=== PATIENT | male | born 1945 | race Two or more races ===

== ENCOUNTER 2020-04-20 19:27 | Inpatient (IN) | payer MEDICARE, SELFPAY ==
[2020-04-20 19:28] VITALS: BP 119/61; PULSE 63; RESP 18; TEMP 36.6; O2SAT 98; BMI 32.3
--- NOTE | 2020-04-20 20:23 | EKG12_ITS ---
Test Reason : CONFUSION Blood Pressure : / mmHG Vent. Rate : 065 BPM Atrial Rate : 065 BPM P-R Int : 212 ms QRS Dur : 092 ms QT Int : 416 ms P-R-T Axes : 036 029 046 degrees QTc Int : 432 ms Sinus rhythm with 1st degree A-V block Otherwise normal ECG Confirmed by NICKIE ZHANG, ERIKA ([id number]), production editor MERI CAMPOS ([id number]) on 04/24/2020 10:54:46 AM Referred By: HAYDER Confirmed By:ERIKA FU MD
--- NOTE | 2020-04-20 20:27 | ED.RN ---
NO OLD EKG FOUND.
--- NOTE | 2020-04-20 20:31 | ED.DCSUM_ITS ---
History of Present Illness Chief Complaint: Alt LOC Informant: Patient, Significant Other Limited by: - - Patient is a poor informant. is a poor informant. Onset: Days Context: Sudden Onset Timing: Continuous, Waxes and wanes Quality: Altered level of consciousness and orientation Location: Not applicable Current Severity: Mild Maximum Severity: Moderate Worsened by: Per patient and unknown Relieved by: Nothing Associated Symptoms: Unable to determine Narrative: Patient is a poor informant. Review of old records indicates that patient has history of alcoholic cirrhosis and hepatic encephalitis. Patient not had a drink in some time according the . He is disoriented to time. He has no complaints. states his urine has been dark. There is no history of him bruising easily. History is limited because he has altered mental status and is not able to supplement. Prior similar symptoms: Yes - Possibly Recent Illness/Hospitalization: No - Past Medical History (1) Cirrhosis of liver Status: Acute (2) History of hepatic encephalopathy Status: Acute Past Medical History - Allergies and Home Meds Allergies/Adverse Reactions: Allergies Penicillins [PCN] Allergy (Verified 04/20/20 19:31) PT UNSURE OF REACTION Primary Care Physician: Kellie Benson MD [Primary Care Provider] - Prior records reviewed: Yes Lives: Spouse/ Significant Other Smoking Status: Former smoker Alcohol: Sober Drugs: None Review of Systems ROS: Unable to Obtain Neurological: Reports: - - Fusion per Physical Exam Vital Signs/Narrative: Vital Signs Temp Pulse Resp BP Pulse Ox 04/20/20 19:28 97.9 F 63 18 119/61 98 Inital Vital Signs reviewed: Yes General: Well nourished, Well developed, Obese Head: Normocephalic, Atraumatic Eyes: Perrl, EOMI. Negative for: Pale conjunctiva ENT: Moist mucous membranes, No rhinorrhea Neck: Supple, Nontender, No lymphadenopathy, No JVD Cardiovascular: Regular rate, Regular rhythm, No murmurs, Normal S1, Normal S2 Respiratory: No distress, CTA bilaterally Abdomen: Soft, Nontender, Nondistended, Normal bowel sounds, No masses Rectal: Deferred Back: Nontender, Normal Inspection Extremities: Nontender, Edema Skin: Normal color, No rash Neurological: Cranial nerves II-XII grossly intact, Normal Strength, Normal Sensation. Negative for: Alert, Oriented x3 Psychological: Normal affect Diagnostic/Tx/Re-eval Chest X-Ray - ED: 1 View, Read by ED Physician, Normal, Heart, Lungs, Mediastinum, Bony Structures, No Acute Disease, Chronic Changes 04/20/20 21:05 Chest 1 View (Portable) [RAD] Stat Laboratory Results 04/20/20 04/20/20 04/20/20 20:21 20:21 20:21 WBC 3.2 L RBC 3.79 L Hgb 12.0 L Hct 36.8 L MCV 97.1 H MCH 31.7 MCHC 32.6 RDW Std Deviation 63.4 H RDW Coeff of Ana Cristina 17.9 H Plt Count 178 MPV 10.6 Immature Gran % (Auto) 0.300 Neut % (Auto) 46.2 L Lymph % (Auto) 29.6 [place] % (Auto) 16.2 H Eos % (Auto) 6.5 H Baso % (Auto) 1.2 H Absolute Neuts (auto) 1.5 L Absolute Lymphs (auto) 0.95 Nucleated RBC % 0 PT 15.8 H INR 1.3 APTT 32.8 Sodium 139 Potassium 4.4 Chloride 110 H Carbon Dioxide 26.0 Anion Gap 3 L BUN 12 Creatinine 0.90 Estim Creat Clear Calc 65.97 Est GFR (MDRD) Af Amer 107 Est GFR (MDRD) Non-Af 88 BUN/Creatinine Ratio 13.4 Glucose 95 Lactic Acid Calcium 8.7 Total Bilirubin 2.10 H AST 37 ALT 20 Alkaline Phosphatase 261 H Ammonia Total Protein 7.4 Albumin 2.8 L Globulin 4.6 H Albumin/Globulin Ratio 0.6 L 04/20/20 04/20/20 20:33 20:33 WBC RBC Hgb Hct MCV MCH MCHC RDW Std Deviation RDW Coeff of Ana Cristina Plt Count MPV Immature Gran % (Auto) Neut % (Auto) Lymph % (Auto) [place] % (Auto) Eos % (Auto) Baso % (Auto) Absolute Neuts (auto) Absolute Lymphs (auto) Nucleated RBC % PT INR APTT Sodium Potassium Chloride Carbon Dioxide Anion Gap BUN Creatinine Estim Creat Clear Calc Est GFR (MDRD) Af Amer Est GFR (MDRD) Non-Af BUN/Creatinine Ratio Glucose Lactic Acid 2.4 H* Calcium Total Bilirubin AST ALT Alkaline Phosphatase Ammonia 86.0 H Total Protein Albumin Globulin Albumin/Globulin Ratio Is up and probably due to diabetes. Ammonia is elevated. Lactulose was ordered. He is neutropenic. INR is normal. Albumin is low at 2.8. - EKG Follow-up EKG Interpretation: Sinus Rhythm - Sinus rhythm with a first-degree AV block. Ventricular rate of 65. MS interval is 212 ms. Cures duration 92 ms. QT duration 416 ms. [place] is normal. - Medical Decision Making With history of cirrhosis and hepatic encephalopathy will work-up for hepatic encephalopathy. Also will rule out infectious and metabolic causes. - Critical Care Time Critical care time (excluding procedures): 30-74 minutes - Total time 22 minutes, Discussing w/Patient &/or Family/Card Setter, Discussing w/Consultants, Arranging Admission or Transfer ED Disposition - Plan for ED Patient: Disposition: Acute Care Hospital [facility] Diagnosis: Hepatic encephalopathy, Neutropenia, Lactic acidosis Referrals: Kellie Benson MD [Primary Care Provider] -
[2020-04-20 20:38] LABS: Absolute Lymphocyte Count 0.95 X10^3/uL (0.83-4.51); Absolute Neutrophil Count 1.5 X10^3/uL (2.0-7.7); Basophil# 0.04 X10^3/uL; Basophil% 1.2 % (0-1); Eosinophil# 0.21 X10^3/uL; Eosinophils% 6.5 % (0-5); Hematocrit 36.8 % (40-54); Lymphocyte # 0.95 X10^3/ul (4.0); Lymphocyte % 29.6 % (19-41); Mean Corp Hgb Conc 32.6 g/dL (32-36); Mean Corpuscular Hgb 31.7 pg (27.0-32.0); Mean Corpuscular Volume 97.1 fL (80-94); Mean Platelet Vol. 10.6 fl (6.2-12.0); Monocyte# 0.52 X10^3/uL; Monocyte% 16.2 % (0-10); NRBC Flagged by Analyzer 0 % (0-5); Neutrophil # 1.48 X10^3/uL (2.7-7.7); Neutrophil % 46.2 % (47-70); Platelet Count 178 K/mm3 (150-450); RBC Distribution Width CV 17.9 % (11.6-14.6); RBC Distribution Width SD 63.4 fl (35.1-43.9); Red Blood Count 3.79 M/mm3 (4.6-6.2); White Blood Count 3.2 K/mm3 (4.4-11.0)
[2020-04-20 20:52] LABS: International Normalized Ratio 1.3; Prothrombin Time (Protime)PT. 15.8 SECONDS (11.7-14.9)
[2020-04-20 20:53] LABS: Partial Thromboplast Time 32.8 Seconds (24.1-36.2)
[2020-04-20 20:56] LABS: ALB/GLOB Ratio 0.6 RATIO (0.9-2.4); AST(SGOT) 37 U/L (15-37); Alanine Aminotransfer ALT/SGPT 20 U/L (16-61); Albumin, Serum 2.8 g/dL (3.2-5.0); Alkaline Phosphatase 261 U/L (45-117); Anion Gap 3 (5-15); BUN 12 mg/dL (7-18); BUN/Creat Ratio 13.4 RATIO (10-20); Calcium,Total 8.7 mg/dL (8.5-10.1); Chloride 110 mmol/L (98-107); EST Glomerular Filtration Rate 88 mL/min (>60); Est Glom Filt Rate - Afr Amer 107 mL/min (>60); Estimated Creatinine Clearance 65.97 ml/min; Globulin 4.6 g/dL (2.2-4.2); Glucose 95 mg/dL (74-106); Potassium 4.4 mmol/L (3.5-5.1); Protein, Total 7.4 g/dL (6.4-8.2); Sodium Level 139 mmol/L (136-145)
--- NOTE | 2020-04-20 21:05 | RAD_ITS ---
STUDY: X-RAY CHEST REASON FOR EXAM: Male, 75 years old. Altered consciousness. Lethargy for 6 days. TECHNIQUE: Single AP portable view of the chest. COMPARISON: None. FINDINGS: The lungs are clear and expanded. There is no demonstrated pleural abnormality. Normal size heart. Normal mediastinum and kym. Normal visualized pulmonary arteries. There is mild atherosclerotic calcification of the aortic arch with tortuosity. There are diffuse degenerative changes of the visualized thoracic spine. There is degenerative osteoarthritis of the bilateral shoulders. There is no demonstrated abnormality of the visualized soft tissue structures of the upper abdomen. RAD/Chest 1 View (Portable) IMPRESSION: Degenerative changes, as described above. No demonstrated acute cardiopulmonary process. Electronically Signed: Mynor Hu DO at 21:33 EST Tel [phone], Service support ,
[2020-04-20 21:16] LABS: Lactic Acid 2.4 mmol/L (0.4-1.9)
[2020-04-20 21:23] VITALS: PULSE 64; RESP 18; O2SAT 100
--- NOTE | 2020-04-20 21:49 | HP.PCM_ITS ---
Problem List (1) Cirrhosis of liver Status: Acute (2) History of hepatic encephalopathy Status: Acute (3) Hepatic encephalopathy Status: Acute (4) Neutropenia Status: Acute (5) Lactic acidosis Status: Acute History of Present Illness Date of Admission: 04/20/20 Chief Complaint: Lethargy The patient is a 75 year old M with a significant history of cirrhosis of the liver who presents emergency department with lethargy. Reportedly his symptoms have been going on for 6 days. Also, patient had visual hallucinations. He reported that he is unable to bear weight on his feet. He is weak and he is tired. History was taken from patient and emergency department doctor as patient is un able to give a thorough history. Per emergent department doctor patient's was also unable to give a thorough history. Past Medical History Medical History: Medical History (Last Updated 04/20/20 @ 23:[address] Golden Go MD) Liver cirrhosis K74.60 Allergies Penicillins [PCN] Allergy (Verified 04/20/20 19:31) PT UNSURE OF REACTION Home Medications: Ambulatory Orders Medication Instructions Recorded Cholecalciferol (Vitamin D3) 2,000 unit PO DAILY 04/20/20 [Vitamin D3] Iron,Carbonyl [Ferretts] 18 mg PO DAILY 04/20/20 Lactulose 30 ml PO TID 04/20/20 Magnesium Oxide [Magnesium] 400 mg PO DAILY 04/20/20 Nadolol 20 mg PO DAILY 04/20/20 Pantoprazole Sodium [Protonix] 40 mg PO BID 04/20/20 Potassium Chloride [Klor-Con M20] 20 meq PO BID 04/20/20 Spironolactone 50 mg PO DAILY 04/20/20 Zinc Sulfate 220 mg PO TID 04/20/20 Surgical History: no surgical history Lives: Spouse/ Significant Other Smoking Status: Former smoker Alcohol: Sober Drugs: None - *Family History Maternal History Items: - - His mother when patient was 5 years old. Patient does not know maternal medical history. Paternal History Items: - - Patient denies knowledge of paternal medical history Review of Systems Constitutional: Reports: Weakness, Fatigue. Denies: Chills, Fever, Weight Change HEENT: Denies: Head Aches, Sinus Congestion, Sinus Drainage Cardiovascular: Denies: Chest Pain, Palpitations Respiratory: Denies: Cough, Shortness of breath at rest, Sputum production Gastrointestinal: Denies: Abdominal Pain, Nausea, Vomiting Genitourinary: Denies: Dysuria Musculoskeletal: Denies: Joint Pain, Joint Tenderness Skin: Denies: Rash, Wounds Neurological: Reports: Confusion. Denies: Focal weakness, Numbness, Tingling Psychiatric: Denies: Anxiety, Depression, Homicidal Ideations, Suicidal Ideations Hematologic/ Lymphatic: Denies: Easy Bruising, Easy Bleeding VTE Information - Inpt Only VTE Present on Admission: No VTE Mechan Device Prophylaxis: None VTE Pharm Prophylaxis ordered?: Yes Patient Problems: Active and Suspected Problems (Last Updated 04/20/20 @ 23:[address] Golden Go MD) Cirrhosis of liver (Acute) History of hepatic encephalopathy (Acute) Hepatic encephalopathy (Acute) Neutropenia (Acute) Lactic acidosis (Acute) - Physical Exam Vitals/I&O's: Vital Signs Temp Pulse Resp BP Pulse Ox 97.9 F 64 18 119/61 100 04/20/20 19:28 04/20/20 21:23 04/20/20 21:23 04/20/20 19:28 04/20/20 21:23 Oxygen Delivery Method Room Air Weight: 90.718 kg Body Mass Index (BMI) 32.3 General: Alert, Cooperative, Confused HEENT: Atraumatic, PERRLA, EOMI, Normocephalic Neck: Supple, No JVD, Negative Carotid Bruits Lungs: Clear to auscultation, Normal air movement, No rhonchi, No wheeze, No ra les Cardiovascular: Regular rate, No murmurs Abdomen: Bowel Sounds Present, Soft, Non Tender Extremities: No edema, Capillary Refill Less than 3 Seconds Skin: No rashes, No breakdown Musculoskeletal: No Tenderness to Palpation of Joints or Extremities Neurological: Cranial nerves II-XII grossly intact Psych/Mental Status: Normal Affect, Appropriate Laboratory Results 04/20/20 20:21: WBC 3.2 L, RBC 3.79 L, Hgb 12.0 L, Hct 36.8 L, MCV 97.1 H, MCH 31.7, MCHC 32.6, RDW Std Deviation 63.4 H, RDW Coeff of Ana Cristina 17.9 H, Plt Count 178, MPV 10.6, Immature Gran % (Auto) 0.300, Neut % (Auto) 46.2 L, Lymph % (Auto) 29.6, [place] % (Auto) 16.2 H, Eos % (Auto) 6.5 H, Baso % (Auto) 1.2 H, Absolute Neuts (auto) 1.5 L, Absolute Lymphs (auto) 0.95, Nucleated RBC % 0 04/20/20 20:21: PT 15.8 H, INR 1.3, APTT 32.8 04/20/20 20:21: Sodium 139, Potassium 4.4, Chloride 110 H, Carbon Dioxide 26.0, Anion Gap 3 L, BUN 12, Creatinine 0.90, Estim Creat Clear Calc 65.97, Est GFR (MDRD) Af Amer 107, Est GFR (MDRD) Non-Af 88, BUN/Creatinine Ratio 13.4, Glucose 95, Calcium 8.7, Total Bilirubin 2.10 H, AST 37, ALT 20, Alkaline Phosphatase 261 H, Total Protein 7.4, Albumin 2.8 L, Globulin 4.6 H, Albumin/Globulin Ratio 0.6 L 04/20/20 20:33: Lactic Acid 2.4 H* 04/20/20 20:33: Ammonia 86.0 H Assessment/Plan All Active Problems (Last Updated 04/20/20 @ 23:[address] Golden Go MD) Cirrhosis of liver (Acute) History of hepatic encephalopathy (Acute) Hepatic encephalopathy (Acute) Neutropenia (Acute) Lactic acidosis (Acute) The patient is a 75 year old M with a significant history of cirrhosis of the liver who presents emergency department with lethargy; and hallucinations who was found to have elevated ammonia level. Acute hepatic encephalopathy Patient was given lactulose 20 mg p.o. at the emergency department. We will continue patient on home lactulose. We will trend ammonia level. We will get ultrasound of abdomen to rule out ascites/spontaneous bacterial peritonitis. Liver cirrhosis On lactulose Nadolol and spironolactone continued. Pancytopenia Likely secondary to liver disease Trend. GERD Protonix continued DVT prophylaxis Subcutaneous Lovenox ordered Inpatient E&M: [id number] Init Hosp L3
[2020-04-20 22:08] VITALS: BP 115/69; PULSE 68; RESP 24; TEMP 36.8; O2SAT 100
[2020-04-20] MEDS: Lactulose 20 GM/30 ML UDC PO (22:31)
[2020-04-20 22:58] VITALS: BMI 32.3
[2020-04-20 23:06] VITALS: BP 109/63; PULSE 64; RESP 18; TEMP 36.4; O2SAT 100
[2020-04-20 23:39] VITALS: O2SAT 100
[2020-04-21] VITALS (9 sets, daily range): BP systolic 108–126; BP diastolic 57–66; PULSE 64–80; RESP 18–20; TEMP 36.6–37.4; O2SAT 97–100
[2020-04-21 00:39] LABS: Reflex Lactate? Y
[2020-04-21 01:39] LABS: Absolute Neutrophil Count 1.1 X10^3/uL (2.0-7.7); Basophil# 0.02 X10^3/uL; Basophil% 0.7 % (0-1); Eosinophil# 0.19 X10^3/uL; Hematocrit 33.5 % (40-54); Hemoglobin 10.9 g/dL (13.0-16.5); Lymphocyte % 36.6 % (19-41); Mean Corp Hgb Conc 32.5 g/dL (32-36); Mean Corpuscular Hgb 31.8 pg (27.0-32.0); Mean Corpuscular Volume 97.7 fL (80-94); Mean Platelet Vol. 10.5 fl (6.2-12.0); Monocyte# 0.42 X10^3/uL; Monocyte% 15.4 % (0-10); NRBC Flagged by Analyzer 0 % (0-5); Neutrophil # 1.09 X10^3/uL (2.7-7.7); Neutrophil % 39.9 % (47-70); Platelet Count 155 K/mm3 (150-450); RBC Distribution Width SD 64.1 fl (35.1-43.9); Red Blood Count 3.43 M/mm3 (4.6-6.2); White Blood Count 2.7 K/mm3 (4.4-11.0)
[2020-04-21 01:55] LABS: Anion Gap 7 (5-15); BUN 12 mg/dL (7-18); BUN/Creat Ratio 16.1 RATIO (10-20); Calcium,Total 8.8 mg/dL (8.5-10.1); Chloride 113 mmol/L (98-107); Creatinine, Serum 0.75 mg/dL (0.70-1.30); EST Glomerular Filtration Rate 109 mL/min (>60); Est Glom Filt Rate - Afr Amer 132 mL/min (>60); Estimated Creatinine Clearance 59.37 ml/min; Glucose 85 mg/dL (74-106); Potassium 4.2 mmol/L (3.5-5.1); Sodium Level 140 mmol/L (136-145)
[2020-04-21 02:01] LABS: Lactic Acid 2.4 mmol/L (0.4-1.9)
[2020-04-21 04:55] LABS: Mucous, Urine 0 SEEN /hpf (<or=2+); Squamous Epithelial Cells - UA 0 SEEN /hpf (0-5)
[2020-04-21 04:57] LABS: Color, Urine Yellow (Yellow); Glucose, Dipstick Normal (Normal); Ketone-Dipstick 5 mg/dl (Negative); Leukocyte Esterase-Dipstick 100 /ul (Negative); Nitrite-Dipstick Negative (Negative); Occult Blood-Urine 10 /ul (Negative); Protein-Dipstick 15 mg/dl (Negative); Urine Bilirubin Dipstick Negative (Negative); Urine Clarity Cloudy (Clear); Urine Urobilinogen 4 mg/dl (Normal)
[2020-04-21 05:02] LABS: Red Blood Cells-Urine 0-5 SEEN /hpf (0-5); White Blood Cells 10-25 SEEN /hpf (0-5)
[2020-04-21 05:03] LABS: Bacteria 3+ /hpf (None Seen)
[2020-04-21] MEDS: Lactulose 20 GM/30 ML UDC PO (05:55)
--- NOTE | 2020-04-21 05:55 | US_ITS ---
STUDY: ABDOMINAL ULTRASOUND - RIGHT UPPER QUADRANT REASON FOR VISIT: Male, 75 years old cirrhosis, encephalopathy TECHNIQUE: Ultrasound evaluation of the right upper quadrant was performed with real-time and static grubbs-scale imaging. TECHNICAL QUALITY: Limited. Examination limited by bowel gas. COMPARISON: None. FINDINGS: Liver: The liver measures 14.3 cm. There is increased echogenicity consistent with fatty infiltration. The bile ducts are within normal limits. There is hepatic color flow. Findings suggestive of a stent in the right pulmonary vein suggestive of a prior TIPS procedure. There is no demonstrated mass lesion. Gallbladder: Normal distended gallbladder. The gallbladder wall measures 4 mm. There is a negative sonographic Marshall''s sign. There is no pericholecystic fluid. There is a solitary echogenic gallstone within the gallbladder. Common Bile Duct (C.B.D.): The common bile duct was not visualized due to overlying bowel gas. Pancreas: There is nonvisualization of the pancreas due to overlying bowel gas. Right Kidney: Normal size of the right kidney. The right kidney measures 10.7 cm x 5.6 cm x 5.8 cm. Normal renal cortex. The right cortex measures 2.1 cm. There is a 2.3 cm x 2.6 cm x 2.5 cm cyst in the lower pole of the right kidney. There is no right hydronephrosis. US/Abdomen Limited IMPRESSION: Fatty infiltration of the liver. Findings suggestive of a stent in the right pulmonary vein suggestive of a prior TIPS procedure. Solitary gallstone. Right renal cyst. Electronically Signed: Ron Clemente MD at 12:01 EST , Service support ,
[2020-04-21] MEDS: Pantoprazole Sodium 40 MG Tablet PO ×2 (09:55→22:56)
[2020-04-21] MEDS: Ferrous Sulfate 325 MG Tablet PO (09:56)
[2020-04-21] MEDS: Magnesium Chloride 64 MG Delay Rel.Tablet 128 MG PO (09:56)
[2020-04-21] MEDS: Potassium Chloride Oral Tablet 20 MEQ PO ×2 (09:57→17:06)
[2020-04-21] MEDS: Spironolactone 50 MG Tablet PO (09:58)
[2020-04-21] MEDS: Enoxaparin 40 MG/0.4 ML Syringe SC (09:58)
[2020-04-21] MEDS: Nadolol 20 MG Tablet PO (09:58)
--- NOTE | 2020-04-21 10:15 | CASEMGMT ---
ANA MCNEAL Face to Face with patient for initial transition planning/care coordination assessment. RN ELIZABET introduced self and role at [facility]. Patient lying in bed, alert and oriented eating breakfast. Patient willing to participate in assessment and is able to answer all questions appropriately. Care providers, pharmacy, and demographics verified. Patient wishes to discharge home, denies need for home health at this time. Patient states he has no further needs or concerns at this time. CM to follow for discharge planning needs that may arise. PCP: Kelley Specialists: none per pt Preferred Pharmacy: [facility] Insurance: [employer] Medicare Prescription Benefit: yes Living Will/HPOA: no, no LNOK: Living Arrangements: Patient lives with Susie in a one story home with two steps to enter. Pt reports that he was independent at home. Transportation: Pt reports cataracts and he can not drive. and friend, Alexandre are able to transport him. DME/HHC: Pt reports having a shower chair, cane, walker and wheelchair in the home. Denies need for further equipment. Denies previous HHC. Disposition Plan: Patient to discharge home with family support and follow up plans in place. Will monitor progress with therapy and need for HHC.
--- NOTE | 2020-04-21 12:49 | CASEMGMT ---
ANA MCNEAL read therapy note recommending HHC. ANA MCNEAL in to discuss HHC with patient. Pt declines HHC. List provided to patient of agencies who accept his insurance. Pt is aware if he should change his mind, he can contact his PCP to get HHC set up. Pt denied further questions or concerns at this time.
--- NOTE | 2020-04-21 14:18 | PN_ITS ---
Patient Problems: Active and Suspected Problems (Last Updated 04/20/20 @ 23:[address] Golden Go MD) Cirrhosis of liver (Acute) History of hepatic encephalopathy (Acute) Hepatic encephalopathy (Acute) Neutropenia (Acute) Lactic acidosis (Acute) Subjective: Feels well. Denies any current complaints. Vitals/I&O's: Vital Signs Temp Pulse Resp BP Pulse Ox 36.8 C 64 20 H 126/66 H 99 04/21/20 14:15 04/21/20 14:15 04/21/20 14:15 04/21/20 14:15 04/21/20 14:15 Oxygen Delivery Method Room Air Weight: 90.7 kg Body Mass Index (BMI) 32.3 Intake and Output for Last 24 Hours 04/19/20 04/20/20 04/21/20 23:59 23:59 23:59 Intake Total 100 / 100 Output Total 0 / 0 Balance 100 / 100 General: Alert, No apparent distress, - - Oriented to self and place. Patient was correct with the date but stated that the year was 2001. HEENT: Atraumatic, Normocephalic Oral: Moist Mucosa, No Gingival or Mucosal Lesions/ Ulcerations Neck: No Nodes, Thyroid Normal Size and Texture Lungs: Clear to auscultation, Normal air movement, No rhonchi, No wheeze, No rales Cardiovascular: Regular rate, Regular Rhythm, Normal S1, Normal S2, No murmurs Abdomen: Bowel Sounds Present, Soft, Non Tender, Non-Distended, Obese Extremities: No Calf Tenderness, Edema Skin: No rashes, No breakdown Musculoskeletal: No Tenderness to Palpation of Joints or Extremities, No Muscle Wasting Psych/Mental Status: Normal Affect, Appropriate Laboratory Results 04/20/20 20:21: WBC 3.2 L, RBC 3.79 L, Hgb 12.0 L, Hct 36.8 L, MCV 97.1 H, MCH 31.7, MCHC 32.6, RDW Std Deviation 63.4 H, RDW Coeff of Ana Cristina 17.9 H, Plt Count 178, MPV 10.6, Immature Gran % (Auto) 0.300, Neut % (Auto) 46.2 L, Lymph % (Auto) 29.6, [place] % (Auto) 16.2 H, Eos % (Auto) 6.5 H, Baso % (Auto) 1.2 H, Absolute Neuts (auto) 1.5 L, Absolute Lymphs (auto) 0.95, Nucleated RBC % 0 04/20/20 20:21: PT 15.8 H, INR 1.3, APTT 32.8 04/20/20 20:21: Sodium 139, Potassium 4.4, Chloride 110 H, Carbon Dioxide 26.0, Anion Gap 3 L, BUN 12, Creatinine 0.90, Estim Creat Clear Calc 65.97, Est GFR (MDRD) Af Amer 107, Est GFR (MDRD) Non-Af 88, BUN/Creatinine Ratio 13.4, Glucose 95, Calcium 8.7, Total Bilirubin 2.10 H, AST 37, ALT 20, Alkaline Phosphatase 261 H, Total Protein 7.4, Albumin 2.8 L, Globulin 4.6 H, Albumin/Globulin Ratio 0.6 L 04/20/20 20:33: Lactic Acid 2.4 H* 04/20/20 20:33: Ammonia 86.0 H 04/21/20 01:25: WBC 2.7 L, RBC 3.43 L, Hgb 10.9 L, Hct 33.5 L, MCV 97.7 H, MCH 31.8, MCHC 32.5, RDW Std Deviation 64.1 H, RDW Coeff of Ana Cristina 18.0 H, Plt Count 155, MPV 10.5, Immature Gran % (Auto) 0.400, Neut % (Auto) 39.9 L, Lymph % (Auto) 36.6, [place] % (Auto) 15.4 H, Eos % (Auto) 7.0 H, Baso % (Auto) 0.7, Absolute Neuts (auto) 1.1 L, Absolute Lymphs (auto) 1.00, Nucleated RBC % 0 04/21/20 01:25: Sodium 140, Potassium 4.2, Chloride 113 H, Carbon Dioxide 20.0 L , Anion Gap 7, BUN 12, Creatinine 0.75, Estim Creat Clear Calc 59.37, Est GFR (MDRD) Af Amer 132, Est GFR (MDRD) Non-Af 109, BUN/Creatinine Ratio 16.1, Glucose 85, Calcium 8.8 04/21/20 01:25: Ammonia 79.0 H 04/21/20 01:25: Lactic Acid 2.4 H* 04/21/20 04:48: Urine Color Yellow, Urine Clarity Cloudy, Urine pH 6.0, Ur Specific [place] 1.020, Urine Protein 15 H, Urine Glucose (UA) Normal, Urine Ketones 5 H, Urine Occult Blood 10 H, Urine Nitrite Negative, Urine Bilirubin N egative, Urine Urobilinogen 4 H, Ur Leukocyte Esterase 100 H, Urine RBC 0-5 SEEN, Urine WBC 10-25 SEEN, Ur Squamous Epith Cells 0 SEEN, Urine Bacteria 3+, Urine Mucus 0 SEEN Current Medications Cholecalciferol (Cholecalciferol (Vit D3) 1,000 Unit (25mcg)) 2,000 unit PO DAILY [facility] Last Admin: 04/21/20 09:55 Dose: 2,000 unit Documented by: Enoxaparin Sodium (Enoxaparin 40 Mg/0.4 Ml Syringe) 40 mg SC DAILY [facility] Last Admin: 04/21/20 09:58 Dose: 40 mg Documented by: Ferrous Sulfate (Ferrous Sulfate 325 Mg Tablet) [facility] Last Admin: 04/21/20 09:56 Dose: 325 mg Documented by: Lactulose (Lactulose 20 Gm/30 Ml Udc) 20 gm PO TID [facility] Last Admin: 04/21/20 05:55 Dose: 20 gm Documented by: Magnesium Chloride (Magnesium Chloride 64 Mg Delay Rel.Tablet) 128 mg PO DAILY [facility] Last Admin: 04/21/20 09:56 Dose: 128 mg Documented by: Nadolol (Nadolol 20 Mg Tablet) 20 mg PO DAILY [facility] Last Admin: 04/21/20 09:58 Dose: 20 mg Documented by: Ondansetron HCl (Ondansetron 4 Mg/2 Ml Vial) 4 mg IV Q8H PRN PRN PRN Reason: NAUSEA/VOMITING Pantoprazole Sodium (Pantoprazole Sodium 40 Mg Tablet) 40 mg PO BID [facility] Last Admin: 04/21/20 09:55 Dose: 40 mg Documented by: Potassium Chloride (Potassium Chloride Oral Tablet 20 Meq) [facility] Last Admin: 04/21/20 09:57 Dose: 20 meq Documented by: Sodium Chloride (0.9% Saline Lock 10 Ml Syringe) 10 - 40 ml IV UD PRN PRN Reason: SALINE FLUSH Spironolactone (Spironolactone 50 Mg Tablet) 50 mg PO DAILY [facility] Last Admin: 04/21/20 09:58 Dose: 50 mg Documented by: Zinc Sulfate (Zinc Sulfate (50mg Elemental) 220 Mg Capsule) 220 mg PO TIDCM [facility] Last Admin: 04/21/20 11:52 Dose: 220 mg Documented by: STROKE Vital Signs/Narrative: Vital Signs Temp Pulse Resp BP Pulse Ox 04/21/20 14:15 36.8 C 64 20 H 126/66 H 99 Medical Necessity - Tobacco Use Smoking Status: Never smoker Assessment/Plan All Active Problems (Last Updated 04/20/20 @ 23:[address] Golden Go MD) Cirrhosis of liver (Acute) History of hepatic encephalopathy (Acute) Hepatic encephalopathy (Acute) Neutropenia (Acute) Lactic acidosis (Acute) 1. hepatic encephalopathy * improved * continue lactulose 20 TID. Goal is 2-3 loose BM/day. * Monitor improvements by clinical assessment. Repeat NH3 checks will not change mgmt, unless he were to worsen. 2. Cirrhosis: * alcoholic v other (BOYLE?) * prior TIPS on US * no clinical evidence of SBP * follow up with GI as outpt * on nadolol and spironolactone 3. Debility * seen by PT who recommends * PT recommends HHC, but he declines * continue to monitor 4. leukopenia and anemia * not pancytopenic given normal plts * stable 5. VTE prophylaxis: LMWH 6. Disposition: plan to monitor overnight to ensure he is stable prior to discharge. 7. Elevated lactic acid * no clinical relevance. no further evaluation. Inpatient E&M: 52040 Subs Hosp L2
[2020-04-21] MEDS: rifAXIMin 550 MG Tablet PO (22:56)
[2020-04-21] MEDS: guaiFENesin 10 ML UDC (200MG/10ML) PO (23:03)
[2020-04-22 01:59] VITALS: BP 119/63; PULSE 69; RESP 18; TEMP 36.4; O2SAT 98
[2020-04-22] MEDS: 0.9% Saline Lock 10 ML Syringe IV (02:03)
[2020-04-22] MEDS: Lactulose 20 GM/30 ML UDC PO (06:27)
[2020-04-22] MEDS: Ferrous Sulfate 325 MG Tablet PO (08:30)
[2020-04-22] MEDS: Potassium Chloride Oral Tablet 20 MEQ PO (08:30)
[2020-04-22 08:33] VITALS: BP 124/80; PULSE 77; RESP 18; TEMP 36.7; O2SAT 97
--- NOTE | 2020-04-22 08:57 | DCINST_ITS ---
- Discharge Diagnoses Current Active Problems: Current Active and Chronic Problems (Last Updated 04/20/20 @ 23:[address] Golden Go MD) Cirrhosis of liver (Acute) History of hepatic encephalopathy (Acute) Hepatic encephalopathy (Acute) Neutropenia (Acute) Lactic acidosis (Acute) You will use the following diet at home:: No restrictions Discharge Activity: Return to Normal Activity Call your doctor if you observe: Fever of 101 or Higher, - - confusion Allergies/Adverse Reactions: Allergies Penicillins [PCN] Allergy (Verified 04/20/20 19:31) PT UNSURE OF REACTION Medications to take at Discharge Cholecalciferol (Vitamin D3) [Vitamin D3] 2,000 unit PO DAILY 04/20/20 Iron,Carbonyl [Ferretts] 18 mg PO DAILY 04/20/20 Lactulose 30 ml PO TID 04/20/20 Magnesium Oxide [Magnesium] 400 mg PO DAILY 04/20/20 Nadolol 20 mg PO DAILY 04/20/20 Pantoprazole Sodium [Protonix] 40 mg PO BID 04/20/20 Potassium Chloride [Klor-Con M20] 20 meq PO BID 04/20/20 Spironolactone 50 mg PO DAILY 04/20/20 Zinc Sulfate 220 mg PO TID 04/20/20 Guaifenesin [Mucinex] 600 mg PO BID #20 tab.er.12h 04/22/20 Rifaximin [Xifaxan] 550 mg PO BID #60 tab 04/22/20 The following prescriptions were given: Guaifenesin [Mucinex] 600 mg PO BID #20 tab.er.12h Transmission Status: Pending to [id number] Rifaximin [Xifaxan] 550 mg PO BID #60 tab Transmission Status: Pending to [id number] Primary Care Physician: Kellie Benson MD [Primary Care Provider] - Within 2 Weeks Test Results: Test results from this visit will be discussed in further detail at your follow- up appointment, if applicable. Please Follow Up With: Gastroenterology When: at earliest available Proposed Discharge Date: 04/22/20
--- NOTE | 2020-04-22 08:59 | DS.PCM_ITS ---
Discharge Date and Diagnosis - Problem List Patient Problems: Active and Suspected Problems (Last Updated 04/20/20 @ 23:[address] Golden Go MD) Cirrhosis of liver (Acute) History of hepatic encephalopathy (Acute) Hepatic encephalopathy (Acute) Neutropenia (Acute) Lactic acidosis (Acute) Date of Admission: 04/20/20 Date of Discharge: 04/22/20 - Primary Discharge Diagnosis Acute Problems: Active Problems (Last Updated 04/20/20 @ 23:[address] Golden Go MD) Cirrhosis of liver (Acute) History of hepatic encephalopathy (Acute) Hepatic encephalopathy (Acute) Neutropenia (Acute) Lactic acidosis (Acute) Hospital Course and Treatment Imaging Results: Clinical Impression(s) from Imaging Studies Chest X-Ray 04/20/20 21:05 IMPRESSION: Degenerative changes, as described above. No demonstrated acute cardiopulmonary process. Electronically Signed: Mynor Hu DO at 21:33 EST Tel [phone], Service support , Abdomen Ultrasound 04/21/20 05:55 IMPRESSION: Fatty infiltration of the liver. Findings suggestive of a stent in the right pulmonary vein suggestive of a prior TIPS procedure. Solitary gallstone. Right renal cyst. Electronically Signed: Ron Clemente MD at 12:01 EST , Service support , Operations: None Procedures: None Summary of Care Provided: The patient is a 75 year old M presents with lethargy. Patient has just been more listless at home. Patient's stated he was just eat and then go to sleep. She was concerned after several days of brought the patient to the emergency room. Patient had ammonia levels 86. Patient had a lactic acid drawn that was 2.4. Patient was continued on lactulose and continue to have diarrhea which has been ongoing at home as well. Discussed with the patient his and she said that there very diligent about giving him his lactulose and ensuring that he is having loose bowel movements per day and he is having at least 3/day. Patient did have an ultrasound that showed fatty infiltration of the liver but otherwise no acute process. Patient does not have any clinical evidence of spontaneous bacterial peritonitis. Regards to the patient's elevated lactic acid, it is unclear why that is but in the absence of any clinical decompensation, this of low yield and no additional work-up was pursued. For the encephalopathy, I had a very long conversation with the patient's today and patient has remained stable during this hospitalization though his ammonia level is elevated it is much lower than it has been. Did express to her concern about some underlying depression with this chronic illness. She stated that he denies anything but I told her that he may be minimizing his symptoms. Giving him benefit of the doubt have added rifaximin to his regimen of lactulose is a sounds like they are compliant with the lactulose. 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 She I did advise that they follow-up with her horse groomer about the TIPS is well as the hepatic encephalopathy which can be worsened by the procedure but it may be a matter of just adjusting the medications and optimizing those before any kind of intervention would be performed. Per the patient's , the patient was never a candidate for liver transplant. Patient was weak as well. Therapy recommended home health care though that has been declined. Plan for the patient to be discharged home in stable condition. [] Patient Problems: Active and Suspected Problems (Last Updated 04/20/20 @ 23:[address] Golden Go MD) Cirrhosis of liver (Acute) History of hepatic encephalopathy (Acute) Hepatic encephalopathy (Acute) Neutropenia (Acute) Lactic acidosis (Acute) - Physical Exam Vitals/I&O's: Vital Signs Temp Pulse Resp BP Pulse Ox 36.7 C 77 18 124/80 H 97 04/22/20 08:33 04/22/20 08:33 04/22/20 08:33 04/22/20 08:33 04/22/20 08:33 Oxygen Delivery Method Room Air Weight: 90.7 kg Body Mass Index (BMI) 32.3 Intake and Output for Last 24 Hours 04/20/20 04/21/20 04/22/20 23:59 23:59 23:59 Intake Total 800 / 800 200 / 200 Output Total 0 / 0 Balance 800 / 800 200 / 200 General: Alert, No apparent distress, - - Oriented to self, place and date was April 22, 2001. Patient told me 2001 yesterday as well. Did know the president was Bl[place]. HEENT: Atraumatic, Normocephalic Oral: Moist Mucosa, No Gingival or Mucosal Lesions/ Ulcerations Neck: No Nodes, Thyroid Normal Size and Texture Lungs: Clear to auscultation, Normal air movement, No rhonchi, No wheeze Cardiovascular: Regular rate, Regular Rhythm, Normal S1, Normal S2 Abdomen: Bowel Sounds Present, Soft, Non Tender, Non-Distended Psych/Mental Status: Normal Affect, Appropriate Current Medications Cholecalciferol (Cholecalciferol (Vit D3) 1,000 Unit (25mcg)) 2,000 unit PO DAILY [facility] Last Admin: 04/21/20 09:55 Dose: 2,000 unit Documented by: Enoxaparin Sodium (Enoxaparin 40 Mg/0.4 Ml Syringe) 40 mg SC DAILY [facility] Last Admin: 04/21/20 09:58 Dose: 40 mg Documented by: Ferrous Sulfate (Ferrous Sulfate 325 Mg Tablet) 325 mg PO DAILYCM [facility] Last Admin: 04/22/20 08:30 Dose: 325 mg Documented by: Guaifenesin (Guaifenesin 10 Ml Udc (200mg/10ml)) 10 ml PO Q4H PRN PRN PRN Reason: COUGH Last Admin: 04/21/20 23:03 Dose: 10 ml Documented by: Lactulose (Lactulose 20 Gm/30 Ml Udc) 20 gm PO TID [facility] Last Admin: 04/22/20 06:27 Dose: 20 gm Documented by: Magnesium Chloride (Magnesium Chloride 64 Mg Delay Rel.Tablet) 128 mg PO DAILY [facility] Last Admin: 04/21/20 09:56 Dose: 128 mg Documented by: Nadolol (Nadolol 20 Mg Tablet) 20 mg PO DAILY [facility] Last Admin: 04/21/20 09:58 Dose: 20 mg Documented by: Ondansetron HCl (Ondansetron 4 Mg/2 Ml Vial) 4 mg IV Q8H PRN PRN PRN Reason: NAUSEA/VOMITING Pantoprazole Sodium (Pantoprazole Sodium 40 Mg Tablet) 40 mg PO BID [facility] Last Admin: 04/21/20 22:56 Dose: 40 mg Documented by: Potassium Chloride (Potassium Chloride Oral Tablet 20 Meq) 20 meq PO BIDCM [facility] Last Admin: 04/22/20 08:30 Dose: 20 meq Documented by: Rifaximin (Rifaximin 550 Mg Tablet) 550 mg PO BID [facility] Last Admin: 04/21/20 22:56 Dose: 550 mg Documented by: Sodium Chloride (0.9% Saline Lock 10 Ml Syringe) 10 - 40 ml IV UD PRN PRN Reason: SALINE FLUSH Last Admin: 04/22/20 02:03 Dose: 10 ml Documented by: Spironolactone (Spironolactone 50 Mg Tablet) 50 mg PO DAILY [facility] Last Admin: 04/21/20 09:58 Dose: 50 mg Documented by: Zinc Sulfate (Zinc Sulfate (50mg Elemental) 220 Mg Capsule) 220 mg PO TIDCM [facility] Last Admin: 04/22/20 08:31 Dose: 220 mg Documented by: Discharge Diet: No Restrictions Discharge Activity: Return to Normal Activity Call your doctor if you observe: Fever of 101 or Higher, - - confusion Home Medications: Medications to take at Discharge Cholecalciferol (Vitamin D3) [Vitamin D3] 2,000 unit PO DAILY 04/20/20 Iron,Carbonyl [Ferretts] 18 mg PO DAILY 04/20/20 Lactulose 30 ml PO TID 04/20/20 Magnesium Oxide [Magnesium] 400 mg PO DAILY 04/20/20 Nadolol 20 mg PO DAILY 04/20/20 Pantoprazole Sodium [Protonix] 40 mg PO BID 04/20/20 Potassium Chloride [Klor-Con M20] 20 meq PO BID 04/20/20 Spironolactone 50 mg PO DAILY 04/20/20 Zinc Sulfate 220 mg PO TID 04/20/20 Guaifenesin [Mucinex] 600 mg PO BID #20 tab.er.12h 04/22/20 Rifaximin [Xifaxan] 550 mg PO BID #60 tab 04/22/20 Following Prescriptions Were Given to Patient: Guaifenesin [Mucinex] 600 mg PO BID #20 tab.er.12h Transmission Status: Pending to [id number] Rifaximin [Xifaxan] 550 mg PO BID #60 tab Transmission Status: Pending to [facility]/pharmacy #[id number] Primary Care Physician: Kellie Benson MD [Primary Care Provider] - Within 2 Weeks Please Follow Up With: Gastroenterology When: at earliest available Disposition: Home Minutes spent on discharge:: 40 Patient Condition:: Fair Medical Necessity - Tobacco Use Smoking Status: Never smoker Meaningful Use Info Meaningful Use Diagnoses (Choose all that apply): None applicable Inpatient E&M: 16889 Disch Hosp
[2020-04-22] MEDS: Spironolactone 50 MG Tablet PO (10:12)
[2020-04-22] MEDS: Enoxaparin 40 MG/0.4 ML Syringe SC (10:13)
[2020-04-22] MEDS: Magnesium Chloride 64 MG Delay Rel.Tablet 128 MG PO (10:13)
[2020-04-22] MEDS: Pantoprazole Sodium 40 MG Tablet PO (10:13)
[2020-04-22] MEDS: Nadolol 20 MG Tablet PO (10:14)
[2020-04-22] MEDS: rifAXIMin 550 MG Tablet PO (10:15)
[2020-04-22 12:15] VITALS: BP 118/62; PULSE 73; RESP 18; TEMP 36.7; O2SAT 99
--- NOTE | 2020-04-24 15:37 | CASEMGMT ---
ANA MCNEAL made tc to pt home to follow up on hospital dc. No answer, left message for patient with return telephone number.
--- NOTE | 2020-04-24 15:48 | CASEMGMT ---
Pt called back and reports that pt has picked up the prescriptions and is taking all of his medications. She reports patient is confused at times. Encouraged her to set up fu appt with PCP. She states PCP office is closed today and she will call first thing in the morning to try to get an appt. 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 No further needs at this time.
== END 2020-04-22 12:14 | disposition home or self-care (01) | DRG 443 ==
LOC: ED 21:25 → MS3 21:43
PROVIDERS: Admitting Provider Hospitalist; Emergency Provider Emergency Medicine; PCP Family Medicine
DX: K72.00 Acute and subacute hepatic failure without coma (principal); K70.30 Alcoholic cirrhosis of liver without ascites; D64.9 Anemia, unspecified; D70.9 Neutropenia, unspecified; K21.9 Gastro-esophageal reflux disease without esophagitis; E66.9 Obesity, unspecified; Z68.32 Body mass index [BMI] 32.0-32.9, adult; Z79.899 Other long term (current) drug therapy; Z87.891 Personal history of nicotine dependence
CPT/HCPCS: 71045; 76705; 80048; 80053; 81001; 82140; 83605; 85025; 85610; 85730; 93005; 97116; 97162; 97166; 97530; 99284; A4216